=== PATIENT | male | born 1940 | race Caucasian/White ===

== ENCOUNTER 2017-08-16 13:05 | Outpatient (CLI) | payer MEDICARE ==
[2017-08-16] MEDS ORDERED: Iopamidol 370 76% 100 ML VIAL ONE (13:46)
--- NOTE | 2017-08-16 15:14 | CT ---
CT ANGIOGRAM OF NECK WITH IV CONTRAST AND 3D RECONSTRUCTIONS: Date: 08/16/17 HISTORY: Occlusion and stenosis of bilateral carotid arteries. Clicking and rushing noise left ear. History of stroke 3 years ago. FINDINGS: Dense atherosclerotic vascular calcifications are seen involving the aortic arch, as well as the grea t vessels. Origin of the great vessels do appear patent. The visualized bilateral subclavian arteries appear patent. The bilateral common carotid arteries are patent. There are dense bulky atherosclerot ic vascular calcifications seen involving the carotid bulbs and proximal internal carotid arteries bi laterally. There is at least a portion of the origin and proximal bilateral internal carotid arteries which are completely obscured and the degree of narrowing is unable to be accurately determined, but the degree of narrowing probably approaches severe in severity given the degree of atherosclerotic v ascular calcifications in this region. In addition, there is suboptimal timing of the contrast bolus which limits the intensity of contrast within the carotid arteries which also limits evaluation. Dens e vascular calcifications are seen in the carotid siphons. Atherosclerotic vascular calcifications are seen involving the vertebral arteries bilaterally with ob scuration of the lumen involving the proximal right vertebral artery. Vertebral arteries are otherwis e patent and codominant to the skull base. The most proximal visualized basilar artery appears patent . There are severe multilevel degenerative changes seen throughout the cervical spine. There is suggest ion of fusion of the posterior elements on the left at the C4-5 level. There is mucosal thickening seen in the bilateral ethmoidal air cells, as well as involving the left maxillary antrum. There is a hypodense cystic structure in the subcutaneous fat posterior to the C3-4 level which may represent a sebaceous cyst measuring 2.3 cm x 1.4 cm. IMPRESSION: 1. Limited examination due to dense atherosclerotic vascular calcifications and suboptimal timing of the contrast bolus. Although there is suboptimal intensity of contrast opacification of the carotid arteries, the internal carotid arteries would likely be difficult to further evaluate with better trevor ing of the contrast bolus due to dense vascular calcifications obscuring the lumen. The degree of markus rowing of the proximal bilateral internal carotid arteries is difficult to assess, but probably appro aches severe in severity. Giving dense vascular calcifications, MRA may be helpful for further evalua tion. 2. Limited evaluation of the proximal right vertebral artery due to dense vascular calcifications. V ertebral arteries otherwise appear patent bilaterally. 3. Sinus disease. POS: [facility]
== END 2017-08-16 13:06 | disposition home or self-care (01) ==
LOC: CT 13:05
PROVIDERS: ATTEND Thoracic Surgery (Cardiothoracic Vascular Surgery)
DX: I65.23 Occlusion and stenosis of bilateral carotid arteries (principal); J32.9 Chronic sinusitis, unspecified
CPT/HCPCS: 70498